=== PATIENT | female | born 2000 | race African-American/Black ===

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

== ENCOUNTER 2020-02-18 14:18 | Emergency (ER) | payer MEDICAID, OTHER ==
[~2020-02-18] VITALS: Ht 167.6 cm; Wt 75.0 kg
[2020-02-18] MEDS ORDERED: NAPROXEN 250 MG TABLET PO ONE (15:00)
[2020-02-18 17:00] VITALS: BP 148/88
== END 2020-02-18 17:01 | disposition home or self-care (01) ==
LOC: EMS 14:21
DX: S82.142A Displaced bicondylar fracture of left tibia, initial encounter for closed fracture (principal); S82.832A Other fracture of upper and lower end of left fibula, initial encounter for closed fracture; Z91.010 Allergy to peanuts; W19.XXXA Unspecified fall, initial encounter; Y93.89 Activity, other specified; Y92.89 Other specified places as the place of occurrence of the external cause; Y99.8 Other external cause status
CPT/HCPCS: 29505

== ENCOUNTER 2021-10-04 10:42 | Emergency (ER) | payer MEDICAID ==
[~2021-10-04] VITALS: Ht 157.5 cm; Wt 63.0 kg
[2021-10-04 12:47] VITALS: BP 113/72
== END 2021-10-04 13:00 | disposition home or self-care (01) ==
LOC: EMS 10:42
DX: H72.92 Unspecified perforation of tympanic membrane, left ear (principal); F10.20 Alcohol dependence, uncomplicated
CPT/HCPCS: 99281; Z7502

== ENCOUNTER 2022-05-16 15:54 | Emergency (ER) | payer OTHER ==
[~2022-05-16] VITALS: Ht 157.5 cm; Wt 77.3 kg
[2022-05-16 18:10] VITALS: BP 125/74
== END 2022-05-16 18:53 | disposition home or self-care (01) ==
LOC: EMS 15:56
DX: M25.562 Pain in left knee (principal); Z91.010 Allergy to peanuts
CPT/HCPCS: 93971; 99284; 73562-TC; Z7502

== ENCOUNTER 2022-06-21 15:24 | Emergency (ER) | payer OTHER ==
[~2022-06-21] VITALS: Ht 154.9 cm; Wt 77.3 kg
[2022-06-21] MEDS ORDERED: RISP0.5T39 PO (15:33)
[2022-06-21] MEDS ORDERED: PARO10TA89 PO (15:33)
[2022-06-21] MEDS ORDERED: DEXAMETHASONE SOD PHOS 4 MG/ML VIAL IM ONE (16:00)
[2022-06-21] MEDS ORDERED: AMOX TR/POT CLAV 400/57.5 MG/5 ML SUSPENSION ORAL.SYG PO ONE (16:00)
[2022-06-21] MEDS ORDERED: KETOROLAC TROMETHAMINE 30 MG/ML VIAL IM ONE (16:00)
[2022-06-21 16:35] VITALS: BP 128/72
[2022-06-21] MEDS ORDERED: IBUPL PO (16:41)
[2022-06-21] MEDS ORDERED: AMOX100S6 PO (16:41)
== END 2022-06-21 16:59 | disposition home or self-care (01) ==
LOC: EMS 15:31
DX: J03.90 Acute tonsillitis, unspecified (principal); Z91.010 Allergy to peanuts
CPT/HCPCS: 99284; 87430; 96372; J1100; J1885